=== PATIENT | female | born 1950 | race American Indian/Alaskan Native ===

== ENCOUNTER 2017-02-28 19:02 | Emergency (ER) | payer MEDICARE ==
[2017-02-28] MEDS ORDERED: NORCO 5/325 PO ONE (20:18)
--- NOTE | 2017-02-28 20:29 | Emergency Department Report ---
HPI - General Chief Complaint: Extremity Injury, Lower Time Seen by Provider: 02/28/17 20:11 - HPI HPI: Room 2 The patient is a 66-year-old female presenting with a chief complaint of left foot pain. The patient states 4 days ago she dropped a spoon on her left foot and since then it has been in pain. Patient describes the pain as throbbing in nature as well as feeling as though there are pins sticking. Patient gives her pain a score of 10/10. Patient denies laceration Location: Left foot Duration: 4 days Quality: [see above] Severity: 10/10 Modifying factors: Movement causes pain Context: [see above] Mode of transportation: [not driving] ED Past Medical Hx - Past Medical History Previous Medical History?: Yes Hx Hypertension: Yes Hx Heart Attack/AMI: Yes Hx Congestive Heart Failure: Yes Additional medical history: Pacemaker since 2009 - Surgical History Additional Surgical History: Pacemaker - Family History Family history: no significant - Social History Smoking Status: Current Some Day Smoker Substance Use Type: None - Medications Home Medications: Home Medications Medication Instructions Recorded Confirmed Last Taken Type Apixaban [Eliquis] 5 mg PO BID 02/28/17 02/28/17 Unknown History Aspirin [Aspirin BABY CHEW TAB] 81 mg PO QDAY 02/28/17 02/28/17 Unknown History Carvedilol [Coreg] 25 mg PO BID 02/28/17 02/28/17 Unknown History Furosemide [Lasix TAB] 40 mg PO BID 02/28/17 02/28/17 Unknown History Pravastatin (Nf) [Pravachol] 40 mg PO QHS 02/28/17 02/28/17 Unknown History ED Review of Systems ROS: Stated complaint: LEFT FOOT PAIN Other details as noted in HPI Comment: All other systems reviewed and negative Constitutional: denies: chills, fever Eyes: denies: eye pain, eye discharge, vision change ENT: denies: ear pain, throat pain Respiratory: denies: cough, shortness of breath, wheezing Cardiovascular: denies: chest pain, palpitations Endocrine: no symptoms reported Gastrointestinal: denies: abdominal pain, nausea, diarrhea Genitourinary: denies: urgency, dysuria, discharge Musculoskeletal: myalgia Skin: change in color Neurological: denies: headache, weakness, paresthesias Psychiatric: denies: anxiety, depression Hematological/Lymphatic: denies: easy bleeding, easy bruising Physical Exam - Physical Exam Vital Signs: Vital Signs 02/28/17 19:33 Temperature 97.9 F Pulse Rate 42 L Respiratory 20 Rate Blood Pressure 139/119 O2 Sat by Pulse 97 Oximetry Physical Exam: GENERAL: The patient is well-developed well-nourished female lying on stretcher not appearing to be in acute distress. [] HEENT: Normocephalic. Atraumatic. NECK: Trachea midline CHEST/LUNGS: There is no respiratory distress noted. HEART/CARDIOVASCULAR: Normal capillary refill soles of the left SKIN: There is warmth and rubor overlying the dorsum of the right foot. No definite areas of fluctuance appreciated. No evidence of previous lacerations or broken skin NEURO: The patient is awake, alert, and oriented. The patient is cooperative. The patient has normal speech MUSCULOSKELETAL: There is tenderness to palpation and swelling overlying the dorsum the left foot ED Course Vital Signs 02/28/17 19:33 Temperature 97.9 F Pulse Rate 42 L Respiratory 20 Rate Blood Pressure 139/119 O2 Sat by Pulse 97 Oximetry ED Medical Decision Making - Radiology Data Radiology results: image reviewed (left foot x-ray) interpreted by me: Left foot x-ray-no acute fracture, no foreign body - Differential Diagnosis foot fracture, foot cellulitis Critical care attestation.: If time is entered above; I have spent that time in minutes in the direct care of this critically ill patient, excluding procedure time. ED Disposition Clinical Impression: Contusion of left foot, Cellulitis of left foot Disposition: DC-01 TO HOME OR SELFCARE Is pt being admited?: No Does the pt Need Aspirin: No Condition: Stable Instructions: Cellulitis (ED) Additional Instructions: Return to the emergency department immediately should you develop worsening symptoms, fever, inability to tolerate food or liquid or any other concerns. Prescriptions: HYDROcodone/APAP 5-325 [[place] 5/325] 1 - 2 each PO Q6HR PRN #14 tablet PRN Reason: Pain Ibuprofen [Motrin 800 MG tab] 800 mg PO Q8HR PRN #20 tablet PRN Reason: Pain Sulfamethoxazole/Trimethoprim [Bactrim DS TAB] 1 each PO BID #20 tablet Referrals: PRIMARY CARE, [Primary Care Provider] - 3-5 Days Time of Disposition: 21:07
--- NOTE | 2017-02-28 20:46 | XRay Report ---
FINAL REPORT PROCEDURE: XR FOOT 3+V LT TECHNIQUE: Left foot, three views HISTORY: Left foot pain COMPARISON: No prior studies are available for comparison. FINDINGS: No acute fracture or dislocation is seen. No focal osseous lesion is seen. No cortical erosions are seen. IMPRESSION: No acute abnormality is identified
[2017-02-28 21:42] VITALS: BP 99/63
== END 2017-02-28 21:50 | disposition home or self-care (01) ==
LOC: ED 19:02
DX: S90.32XA Contusion of left foot, initial encounter (principal); W20.8XXA Other cause of strike by thrown, projected or falling object, initial encounter; Y93.9 Activity, unspecified; Y92.9 Unspecified place or not applicable; Y99.9 Unspecified external cause status; I10 Essential (primary) hypertension; I50.9 Heart failure, unspecified; F17.200 Nicotine dependence, unspecified, uncomplicated
CPT/HCPCS: 93005; 93010

== ENCOUNTER 2021-02-14 12:46 | Inpatient (IN) | payer MEDICARE ==
[2021-02-17] MEDS ORDERED: oxyCODONE /ACETAMINOPHEN 5-325MG TAB PO PRN (11:23)
[2021-02-17] MEDS ORDERED: ONDANSETRON 4 MG/2 ML INJ IV PRN (11:23)
[2021-02-17] MEDS ORDERED: ACETAMINOPHEN 325 MG TAB PO PRN (11:23)
[2021-02-17] MEDS ORDERED: HYDROmorphone 1 MG/1 ML INJ IV PRN (11:23)
--- NOTE | 2021-02-20 07:44 | History and Physical Report ---
History of Present Illness Date of examination: 02/19/21 Date of admission: 02/19/21 18:36 Chief complaint: Right hip fracture History of present illness: 70-year-old female unknown to me was admitted as a direct admit for right hip fracture. Patient apparently had a fall on February 06 and sustained a hip fracture. Patient was apparently seen in the emergency room and sent home and brought in as a direct admit today for possible ORIF. Patient has a history of hypertension and CHF. Patient has pain about 6-8 on a scale of 1-10 on the right hip. No shortness of breath no fever no chills. Past History Past Medical History: heart failure, hypertension Past Surgical History: No surgical history Social history: lives with family, full code Family history: hypertension Medications and Allergies Allergies Allergy/AdvReac Type Severity Reaction Status Date / Time clarithromycin [From Biaxin] Allergy Rash Verified 02/11/21 15:28 lisinopril Allergy Rash Verified 02/11/21 15:28 Penicillins Allergy Rash Verified 02/11/21 15:28 Home Medications Medication Instructions Recorded Confirmed Last Taken Type Aspirin [Aspirin BABY CHEW TAB] 81 mg PO QDAY 02/28/17 02/11/21 Unknown History Furosemide [Lasix TAB] 40 mg PO PRN PRN 02/28/17 02/11/21 Unknown History carvediloL [Coreg] 25 mg PO DAILY 02/28/17 02/11/21 Unknown History Amiodarone [Cordarone 200 MG TAB] 200 mg PO DAILY 02/11/21 02/11/21 Unknown History calcitrioL [Rocaltrol] 0.25 mcg PO DAILY 02/11/21 02/11/21 Unknown History hydrALAZINE [Apresoline TAB] 10 mg PO TID 02/11/21 02/11/21 Unknown History Active Meds: Active Medications Acetaminophen (Acetaminophen 325 Mg Tab) 650 mg PO Q4H PRN PRN Reason: Pain MILD(1-3)/Fever >100.5/RAMESH Hydromorphone HCl (Hydromorphone 1 Mg/1 Ml Inj) 0.5 mg IV Q3H PRN PRN Reason: Pain , Severe (7-10) Ondansetron HCl (Ondansetron 4 Mg/2 Ml Inj) 4 mg IV Q8H PRN PRN Reason: Nausea And Vomiting Oxycodone/Acetaminophen (Oxycodone /Acetaminophen 5-325mg Tab) 1 tab PO Q6H PRN PRN Reason: Pain, Moderate (4-6) Last Admin: 02/19/21 22:17 Dose: 1 tab Documented by: Sodium Chloride (Sodium Chloride 0.9% 10 Ml Flush Syringe) 10 ml IV BID DAVID Last Admin: 02/19/21 22:23 Dose: 10 ml Documented by: Sodium Chloride (Sodium Chloride 0.9% 10 Ml Flush Syringe) 10 ml IV PRN PRN PRN Reason: LINE FLUSH Review of Systems All systems: negative Musculoskeletal: fractures (Right rib fracture), other (Decreased range of motion of the right hip) Exam - Constitutional Vitals: Temp Pulse Resp BP Pulse Ox 97.5 F L 70 16 134/70 95 02/20/21 04:42 02/20/21 04:42 02/20/21 04:42 02/20/21 04:42 02/20/21 04:42 General appearance: Present: mild distress, well-nourished - EENT Eyes: Present: PERRL ENT: hearing intact, clear oral mucosa - Neck Neck: Present: supple, normal ROM - Respiratory Respiratory effort: normal Respiratory: bilateral: CTA - Cardiovascular Heart rate: 78 Rhythm: regular Heart Sounds: Present: S1 & S2. Absent: rub, click - Extremities Extremities: pulses symmetrical, No edema, abnormal (Decreased range of motion in the right hip) Extremity abnormal: deformity (Abduction and internal rotation of the right lower extremity), other Peripheral Pulses: within normal limits - Abdominal General gastrointestinal: Present: soft, non-tender, non-distended, normal bowel sounds Female genitourinary: Present: normal - Rectal Rectal Exam: deferred - Integumentary Integumentary: Present: clear, warm, dry - Musculoskeletal Musculoskeletal: gait normal, strength equal bilaterally - Psychiatric Psychiatric: appropriate mood/affect, intact judgment & insight - Neurologic Neurologic: CNII-XII intact, moves all extremities - Allied Health Allied health notes reviewed: nursing, case management Results Gonsalves/IV: Voiding Method Toilet Assessment and Plan Advance Directives: Yes (Full code) VTE prophylaxis?: Chemical Plan of care discussed with patient/family: Yes - Patient Problems (1) Closed right hip fracture Current Visit: Yes Status: Acute Qualifiers: Encounter type: initial encounter Qualified Code(s): S72.001A - Fracture of unspecified part of neck of right femur, initial encounter for closed fracture Plan to address problem: Possible surgery by orthopedics (2) Hypertension Current Visit: Yes Status: Chronic Qualifiers: Hypertension type: primary hypertension Qualified Code(s): I10 - Essential (primary) hypertension Plan to address problem: Continue antihypertensives (3) CHF (congestive heart failure) Current Visit: Yes Status: Chronic Qualifiers: Heart failure type: combined systolic and diastolic Plan to address problem: Continue Lasix (4) DVT prophylaxis Current Visit: Yes Status: Acute Plan to address problem: On SCDs and GI prophylaxis Heparin to be started after surgery
[2021-02-20] MEDS: CALCITRIOL 0.25 MCG CAP PO SCH (09:04)
[2021-02-20] MEDS: AMIODARONE 200 MG TAB PO SCH (09:05)
[2021-02-20] MEDS: hydrALAZINE 10 MG TAB PO SCH ×2 (09:05→14:14)
[2021-02-20] MEDS: POTASSIUM CHLORIDE ER 20 MEQ TAB PO SCH (09:06)
[2021-02-20] MEDS: FUROSEMIDE 40 MG TAB PO SCH (09:06)
[2021-02-20 09:22] LABS: Basophils # (Auto) 0.1 K/mm3 (0.0-0.1); Basophils % (Auto) 1.5 % (0.0-1.8); Eosinophils # (Auto) 0.3 K/mm3 (0.0-0.4); Eosinophils % (Auto) 3.8 % (0.0-4.3); Hematocrit 36.9 % (30.3-42.9); Hemoglobin 12.8 gm/dl (10.1-14.3); Lymphocytes # (Auto) 1.5 K/mm3 (1.2-5.4); Lymphocytes % (Auto) 18.9 % (13.4-35.0); Mean Corpuscular HGB Conc 35 % (30-34); Mean Corpuscular Volume 94 fl (79-97); Monocytes # (Auto) 0.5 K/mm3 (0.0-0.8); Monocytes % (Auto) 6.3 % (0.0-7.3); Platelet Count 279 K/mm3 (140-440); Red Blood Count 3.93 M/mm3 (3.65-5.03); Red Cell Distribution Width 14.1 % (13.2-15.2)
[2021-02-20 09:23] LABS: Calcium 10.3 mg/dL (8.4-10.2)
--- NOTE | 2021-02-20 09:33 | Consultation ---
History of Present Illness Consult date: 02/20/21 Requesting physician: SHANNON SALAS Consult reason: pre op evaluation History of present illness: Pt is a 70-year-old AA female with a hx of chronic HFrEF, NICMP s/p BiV ICD (Roel Sci), severe MR, COPD, prior tobacco abuse, and HTN, who presented as a direct admit for eval of L tib-fib fx and in consideration for possible orthopedic surgical intervention. Cardiology has been consulted to provide pre-op risk str atification. Pt is followed by Dr. Hooks with [facility] in [place], [place]. She has been seen at the [facility] as well (last visit 2018). Pt is compliant with her home regimen and is well-compensated from a HF perspective. Pt states "I can walk anywhere I want. I travel and walk through the airport without any problems." She denies chest pain, palpitations, SOB, edema, or any additional cardiac complaints. She reports her most recent ICD check was August 2020, which revealed normal device function at that time. Echo 09/2017 - EF 20%, akinetic basal/mid inferior and inferolateral delgado, grade II diastolic dysfxn, RV systolic fxn mild-mod reduced, LA severely dilated, RA mildly dilated, severe MR, mild TR, mildly elevated RVSP. Past History Past Medical History: COPD, heart failure, hypertension Past Surgical History: denies: valve replacement, CABG, PTCA Social history: lives with family, smoking (former), full code. denies: alcohol abuse Family history: hypertension Medications and Allergies Allergies Allergy/AdvReac Type Severity Reaction Status Date / Time clarithromycin [From Biaxin] Allergy Rash Verified 02/11/21 15:28 lisinopril Allergy Rash Verified 02/11/21 15:28 Penicillins Allergy Rash Verified 02/11/21 15:28 Home Medications Medication Instructions Recorded Confirmed Last Taken Type Aspirin [Aspirin BABY CHEW TAB] 81 mg PO QDAY 02/28/17 02/11/21 Unknown History Furosemide [Lasix TAB] 40 mg PO PRN PRN 02/28/17 02/11/21 Unknown History carvediloL [Coreg] 25 mg PO DAILY 02/28/17 02/11/21 Unknown History Amiodarone [Cordarone 200 MG TAB] 200 mg PO DAILY 02/11/21 02/11/21 Unknown History calcitrioL [Rocaltrol] 0.25 mcg PO DAILY 02/11/21 02/11/21 Unknown History hydrALAZINE [Apresoline TAB] 10 mg PO TID 02/11/21 02/11/21 Unknown History Active Meds: Active Medications Acetaminophen (Acetaminophen 325 Mg Tab) 650 mg PO Q4H PRN PRN Reason: Pain MILD(1-3)/Fever >100.5/RAMESH Amiodarone HCl (Amiodarone 200 Mg Tab) 200 mg PO DAILY [facility] Last Admin: 02/20/21 09:05 Dose: 200 mg Documented by: Calcitriol (Calcitriol 0.25 Mcg Cap) 0.25 mcg PO DAILY [facility] Last Admin: 02/20/21 09:04 Dose: 0.25 mcg Documented by: Carvedilol (Carvedilol 25 Mg Tab) 25 mg PO DAILY [facility] Last Admin: 02/20/21 09:05 Dose: 12.5 mg Documented by: Furosemide (Furosemide 40 Mg Tab) 40 mg PO QDAY [facility] Last Admin: 02/20/21 09:06 Dose: Not Given Documented by: Hydralazine HCl (Hydralazine 10 Mg Tab) 10 mg PO TID [facility] Last Admin: 02/20/21 09:05 Dose: 10 mg Documented by: Hydromorphone HCl (Hydromorphone 1 Mg/1 Ml Inj) 0.5 mg IV Q3H PRN PRN Reason: Pain , Severe (7-10) Ondansetron HCl (Ondansetron 4 Mg/2 Ml Inj) 4 mg IV Q8H PRN PRN Reason: Nausea And Vomiting Oxycodone/Acetaminophen (Oxycodone /Acetaminophen 5-325mg Tab) 1 tab PO Q6H PRN PRN Reason: Pain, Moderate (4-6) Last Admin: 02/19/21 22:17 Dose: 1 tab Documented by: Potassium Chloride (Potassium Chloride Er 20 Meq Tab) 20 meq PO QDAY [facility] Last Admin: 02/20/21 09:06 Dose: Not Given Documented by: Sodium Chloride (Sodium Chloride 0.9% 10 Ml Flush Syringe) 10 ml IV BID [facility] Last Admin: 02/20/21 09:06 Dose: 10 ml Documented by: Sodium Chloride (Sodium Chloride 0.9% 10 Ml Flush Syringe) 10 ml IV PRN PRN PRN Reason: LINE FLUSH Review of Systems Constitutional: no fever, no chills Ears, nose, mouth and throat: no nasal congestion, no sore throat Cardiovascular: no chest pain, no orthopnea, no palpitations, no edema, no syncope, no lightheadedness, no shortness of breath, no dyspnea on exertion, no paroxysmal nocturnal dyspnea, no claudication Respiratory: no cough, no shortness of breath, no dyspnea on exertion Gastrointestinal: no abdominal pain, no nausea, no vomiting Genitourinary Female: no pelvic pain, no flank pain, no dysuria Musculoskeletal: no neck stiffness, no neck pain Integumentary: no rash, no wounds Neurological: no head injury, no paralysis, no weakness, no numbness, no tingling, no seizures, no syncope, no vertigo, no headaches Endocrine: no cold intolerance, no heat intolerance Hematologic/Lymphatic: no easy bruising, no easy bleeding Allergic/Immunologic: no anaphylaxis Physical Examination Last Vital Signs Temp 97.9 F 02/20/21 07:28 Pulse 71 02/20/21 07:28 Resp 16 02/20/21 07:28 BP 143/84 02/20/21 07:28 Pulse Ox 95 02/20/21 07:28 General appearance: no acute distress HEENT: Positive: EOMI, Normocephaly, Mucus Membranes Moist Neck: Positive: neck supple, trachea midline. Negative: JVD/HJR Cardiac: Positive: Reg Rate and Rhythm, S1/S2 Lungs: Positive: clear to auscultation Neuro: Positive: Grossly Intact Abdomen: Positive: Soft. Negative: Tender Skin: Negative: Rash Musculoskeletal: No Fluid Collection Extremities: Present: upper extr. pulses, lower extr. pulses. Absent: edema Results 02/20/21 Unknown 02/20/21 Unknown CBC 02/20/21 Range/Units Unknown WBC 7.8 (4.5-11.0) K/mm3 RBC 3.93 (3.65-5.03) M/mm3 Hgb 12.8 (10.1-14.3) gm/dl Hct 36.9 (30.3-42.9) % Plt Count 279 (140-440) K/mm3 Lymph # (Auto) 1.5 (1.2-5.4) K/mm3 [place] # (Auto) 0.5 (0.0-0.8) K/mm3 Eos # (Auto) 0.3 (0.0-0.4) K/mm3 Baso # (Auto) 0.1 (0.0-0.1) K/mm3 Comprehensive Metabolic Panel 02/20/21 Range/Units Unknown Sodium 136 L (137-145) mmol/L Potassium 4.6 (3.6-5.0) mmol/L Chloride 98.8 (98-107) mmol/L Carbon Dioxide 27 (22-30) mmol/L BUN 20 H (7-17) mg/dL Creatinine 1.4 H (0.6-1.2) mg/dL Glucose 94 (65-100) mg/dL Calcium 10.3 H (8.4-10.2) mg/dL - Imaging and Cardiology Echo: pending, report reviewed (09/2017 - EF 20%, akinetic basal/mid inferior and inferolateral delgado, grade II diastolic dysfxn, RV systolic fxn mild-mod reduced, LA severely dilated, RA mildly dilated, severe MR, mild TR, mildly elevated RVSP) EKG interpretations - Telemetry EKG Rhythm: Paced Pacemaker: normal AV synchronous pac Assessment and Plan Pt is moderate-high risk from a cardiovascular standpoint to proceed with orthopedic surgical intervention for L tib-fib fx. RCRI Class II, 1 point (assuming Cr not > 2.0mg/dL), 6.0% risk of MACE within 30 days. Her risk factors are non-modifiable. In the absence of ischemic sx or acutely decompensated HF, there are no cardiac contraindications to intervention at this time. Will follow with you. Otherwise stable cardiac status. Resume home cardiac regimen. Will change Coreg to 12.5mg BID. Pt does not appear to be on an ACEI or ARB as an outpatient. Awaiting labs for eval of renal fxn. Pt seen in conjunction with Dr. Malik, who agrees with the assessment and plan of care. - Patient Problems (1) Right femoral fracture Current Visit: Yes Status: Acute (2) Chronic HFrEF (heart failure with reduced ejection fraction) Current Visit: Yes Status: Chronic (3) Non-ischemic cardiomyopathy Current Visit: Yes Status: Chronic (4) Biventricular implantable cardioverter-defibrillator (ICD) in situ Current Visit: Yes Status: Chronic (5) Severe mitral regurgitation Current Visit: Yes Status: Chronic (6) Hypertension Current Visit: Yes Status: Chronic Qualifiers: Hypertension type: primary hypertension Qualified Code(s): I10 - Essential (primary) hypertension (7) H/O ventricular fibrillation Current Visit: Yes Status: Chronic (8) COPD (chronic obstructive pulmonary disease) Current Visit: Yes Status: Chronic (9) Tobacco abuse, in remission Current Visit: Yes Status: Chronic
[2021-02-20 09:46] LABS: INR 1.03 (0.87-1.13)
[2021-02-20 09:47] LABS: Partial Thromboplastin Time 27.3 Sec. (24.2-36.6)
[2021-02-20] MEDS ORDERED: carvediloL 25 MG TAB PO SCH ×2 (10:00→22:00)
[2021-02-20] MEDS ORDERED: MAGNESIUM OXIDE 400 MG TAB PO ONE (10:02)
[2021-02-20] MEDS ORDERED: ACETAMINOPHEN 325 MG TAB PO ONE (10:02)
[2021-02-20] MEDS ORDERED: fentaNYL 100 MCG/2 ML INJ IV ONE (10:02)
[2021-02-20] MEDS ORDERED: ONDANSETRON 4 MG/2 ML INJ IV PRN (10:02)
[2021-02-20] MEDS ORDERED: HYDROmorphone 1 MG/1 ML INJ IV PRN ×2 (10:02)
[2021-02-20] MEDS ORDERED: BUPIVACAINE/PF (0.25%) 2.5 MG/ML 30 ML VIAL INFILTRATI ONE (10:07)
--- NOTE | 2021-02-20 10:07 | Anesthesia Day of Surgery ---
Anesthesia Day of Surgery - Day of Surgery Patient Examined: Yes Patient H&P Reviewed: Yes Patient is NPO: Yes Beta Blockers: Yes Cardiac Clearance: Yes Mike's Test: N/A
[2021-02-20] MEDS ORDERED: dexAMETHasone 4 MG/ML VIAL ONE (10:08)
[2021-02-20] MEDS ORDERED: BUPIVACAINE/PF (0.5%) 5 MG/1 ML 30 ML VIAL INFILTRATI ONE (10:08)
--- NOTE | 2021-02-20 10:13 | Anesthesia Consultation ---
Anesthesia Consult and Med Hx Date of service: 02/20/21 - Airway Anesthetic Teeth Evaluation: Poor ROM Head & Neck: Adequate Mental/Hyoid Distance: Adequate Mallampati Class: Class I Intubation Access Assessment: Probably Good - Cardiac Exam Anesthetic Concerns: AICD- av paced. echo 2018 showed 20% EF, severe MR, mild TR - Pre-Operative Health Status ASA Pre-Surgery Classification: ASA2 Proposed Anesthetic Plan: General, Spinal Nerve Block: Pop - Pulmonary Hx Smoking: No (FORMER) Hx Sleep Apnea: No - Cardiovascular System Hx Hypertension: Yes Hx Heart Attack/AMI: Yes Hx Pacemaker: Yes (av paced, replaced aug 2019) Hx Internal Defibrillator: Yes - Central Nervous System Hx Neuromuscular Disorder: No Hx Psychiatric Problems: No - Endocrine Hx Renal Disease: Yes (CKD III) - Other Systems Hx Cancer: No
--- NOTE | 2021-02-20 10:14 | Progress Note ---
Assessment and Plan Assessment and plan: --Displaced left tibia and fibula fracture Current Visit: Yes Status: Acute Evaluated by orthopedic surgeon underwent s/p Closed reduction insertion of intramedullary nail left] tibia Postop care, pain medications, physical therapy and supportive care --Hypertension Current Visit: Yes Status: Chronic Continue antihypertensives --CHF (congestive heart failure) Current Visit: Yes Status: Chronic Continue current antifailure medications --Acute kidney injury; Current Visit: Yes Status: Acute vasomotor nephropathy Gentle hydration, monitor renal function, avoid nephrotoxin --DVT prophylaxis Current Visit: Yes Status: Acute DVT prophylaxis per orthopedic We will closely monitor the patient and adjust the management as needed Plan of care reviewed with the patient and her nurse Manager Of [employer] recommendations noted and appreciated History Interval history: I seen and examined the patient at the bedside this afternoon Patient's chart medications tests and reports reviewed Patient underwent Ortho surgical procedure today Sedated and sleeping, easily awakens Complains of some pain at the surgical site Vital signs noted Hospitalist Physical - Constitutional Vitals: Temp Pulse Resp BP Pulse Ox 97.9 F 71 16 143/84 95 02/20/21 07:28 02/20/21 07:28 02/20/21 07:28 02/20/21 07:28 02/20/21 07:28 General appearance: Present: mild distress, well-nourished, other (Sleeping easily awakens) - EENT Eyes: Present: PERRL, EOM intact - Neck Neck: Present: supple, normal ROM - Respiratory Respiratory effort: normal Respiratory: bilateral: diminished, negative: rales, rhonchi, wheezing - Cardiovascular Rhythm: regular Heart Sounds: Present: S1 & S2 - Extremities Extremities: no ischemia, No edema - Abdominal General gastrointestinal: soft, non-tender, non-distended, normal bowel sounds - Integumentary Integumentary: Present: clear, warm - Psychiatric Psychiatric: appropriate mood/affect, cooperative - Neurologic Neurologic: moves all extremities Results - Labs CBC & Chem 7: 02/20/21 Unknown 02/20/21 Unknown Labs: Laboratory Last Values WBC 7.8 K/mm3 (4.5-11.0) 02/20/21 Unknown RBC 3.93 M/mm3 (3.65-5.03) 02/20/21 Unknown Hgb 12.8 gm/dl (10.1-14.3) 02/20/21 Unknown Hct 36.9 % (30.3-42.9) 02/20/21 Unknown MCV 94 fl (79-97) 02/20/21 Unknown MCH 33 pg (28-32) H 02/20/21 Unknown MCHC 35 % (30-34) H 02/20/21 Unknown RDW 14.1 % (13.2-15.2) 02/20/21 Unknown Plt Count 279 K/mm3 (140-440) 02/20/21 Unknown Lymph % (Auto) 18.9 % (13.4-35.0) 02/20/21 Unknown Labette % (Auto) 6.3 % (0.0-7.3) 02/20/21 Unknown Eos % (Auto) 3.8 % (0.0-4.3) 02/20/21 Unknown Baso % (Auto) 1.5 % (0.0-1.8) 02/20/21 Unknown Lymph # (Auto) 1.5 K/mm3 (1.2-5.4) 02/20/21 Unknown Labette # (Auto) 0.5 K/mm3 (0.0-0.8) 02/20/21 Unknown Eos # (Auto) 0.3 K/mm3 (0.0-0.4) 02/20/21 Unknown Baso # (Auto) 0.1 K/mm3 (0.0-0.1) 02/20/21 Unknown Seg Neutrophils % 69.5 % (40.0-70.0) 02/20/21 Unknown Seg Neutrophils # 5.4 K/mm3 (1.8-7.7) 02/20/21 Unknown PT 14.1 Sec. (12.2-14.9) 02/20/21 Unknown INR 1.03 (0.87-1.13) 02/20/21 Unknown APTT 27.3 Sec. (24.2-36.6) 02/20/21 Unknown Sodium 136 mmol/L (137-145) L 02/20/21 Unknown Potassium 4.6 mmol/L (3.6-5.0) 02/20/21 Unknown Chloride 98.8 mmol/L (98-107) 02/20/21 Unknown Carbon Dioxide 27 mmol/L (22-30) 02/20/21 Unknown Anion Gap 15 mmol/L 02/20/21 Unknown BUN 20 mg/dL (7-17) H 02/20/21 Unknown Creatinine 1.4 mg/dL (0.6-1.2) H 02/20/21 Unknown Estimated GFR 45 ml/min 02/20/21 Unknown BUN/Creatinine Ratio 14 % 02/20/21 Unknown Glucose 94 mg/dL (65-100) 02/20/21 Unknown Calcium 10.3 mg/dL (8.4-10.2) H 02/20/21 Unknown Gonsalves/IV: Voiding Method Toilet Active Medications - Current Medications Current Medications: Generic Name Dose Route Start Last Admin Trade Name Freq PRN Reason Stop Dose Admin Acetaminophen 650 mg 02/17/21 11:23 Acetaminophen 325 Mg Tab PO Q4H PRN Pain MILD(1-3)/Fever >100.5/RAMESH Amiodarone HCl 200 mg 02/20/21 10:00 02/20/21 09:05 Amiodarone 200 Mg Tab PO 200 mg DAILY DAVID Administration Calcitriol 0.25 mcg 02/20/21 10:00 02/20/21 09:04 Calcitriol 0.25 Mcg Cap PO 0.25 mcg DAILY DAVID Administration Carvedilol 12.5 mg 02/20/21 22:00 Carvedilol 12.5 Mg Tab PO BID DAVID Furosemide 40 mg 02/20/21 10:00 02/20/21 09:06 Furosemide 40 Mg Tab PO Not Given QDAY DAVID Hydralazine HCl 10 mg 02/20/21 09:00 02/20/21 09:05 Hydralazine 10 Mg Tab PO 10 mg TID DAVID Administration Hydromorphone HCl 0.5 mg 02/17/21 11:23 Hydromorphone 1 Mg/1 Ml Inj IV Q3H PRN Pain , Severe (7-10) Hydromorphone HCl 0.25 mg 02/20/21 10:02 Hydromorphone 1 Mg/1 Ml Inj IV 02/20/21 23:59 Q10MIN PRN Pain, Moderate (4-6) Hydromorphone HCl 0.5 mg 02/20/21 10:02 Hydromorphone 1 Mg/1 Ml Inj IV 02/20/21 23:59 Q10MIN PRN Pain , Severe (7-10) Lactated Ringer's 1,000 mls @ 100 mls/hr 02/20/21 10:15 Lactated Ringers IV DIRECT DAVID Midazolam HCl 2 mg 02/20/21 11:00 Midazolam 2 Mg/2 Ml Inj IV 02/20/21 23:59 PREOP NR Ondansetron HCl 4 mg 02/17/21 11:23 Ondansetron 4 Mg/2 Ml Inj IV Q8H PRN Nausea And Vomiting Ondansetron HCl 4 mg 02/20/21 10:02 Ondansetron 4 Mg/2 Ml Inj IV 02/20/21 23:59 ONCE PRN Nausea And Vomiting Oxycodone/Acetaminophen 1 tab 02/17/21 11:23 02/19/21 22:17 Oxycodone /Acetaminophen 5-325mg Tab PO 1 tab Q6H PRN Administration Pain, Moderate (4-6) Potassium Chloride 20 meq 02/20/21 10:00 02/20/21 09:06 Potassium Chloride Er 20 Meq Tab PO Not Given QDAY DAVID Sodium Chloride 10 ml 02/17/21 22:00 02/20/21 09:06 Sodium Chloride 0.9% 10 Ml Flush Syringe IV 10 ml BID DAVID Administration Sodium Chloride 10 ml 02/17/21 11:23 Sodium Chloride 0.9% 10 Ml Flush Syringe IV PRN PRN LINE FLUSH
[2021-02-20] MEDS ORDERED: LACTATED RINGERS 1,000 ML IV SCH (10:15)
[2021-02-20] MEDS ORDERED: ceFAZolin/STERILE WATER 2 GM/20 ML SYRINGE IV NR (11:00)
[2021-02-20] MEDS ORDERED: MIDAZOLAM 2 MG/2 ML INJ IV NR (11:00)
[2021-02-20] MEDS ORDERED: VANCOMYCIN/NS 1 GM/250 ML 1 GM/250 ML BAG IV NR (11:00)
[2021-02-20] MEDS ORDERED: ePHEDrine SULFATE 50 MG/1 ML INJ ONE (11:25)
[2021-02-20] MEDS ORDERED: ONDANSETRON 4 MG/2 ML INJ ONE (11:35)
[2021-02-20] MEDS ORDERED: PHENYLEPHRINE/NS 1,000 MCG/10 ML SYRINGE (OR USE) IV ONE ×2 (11:55)
[2021-02-20] MEDS ORDERED: SODIUM CHLORIDE 0.9% IRR 1,500 ML BOTTLE IR ONE ×2 (13:38)
--- NOTE | 2021-02-20 14:00 | Procedure Note ---
Date of procedure: 02/20/21 Pre-op diagnosis: Displaced left tib-fib fracture Post-op diagnosis: same Procedure: Closed reduction insertion of intramedullary nail left] tibia Procedure The patient was brought to the OR placed in the OR table in supine position following induction of spinal anesthesia patient for left lower extremity was prepped and draped in the usual sterile manner a timeout procedure was done to identify the patient and the correct operative site. A midline incision was made over the patellar tendon was taken down sharply through skin and subcutaneous deep tendon was incised longitudinally withdraws down to the proximal tibial articular surface.Large awl was used to enter the medullary can followed by insertion of a bolster a guidewire under C-arm visualization the fracture site was identified and using gentle manipulation the guidewire was placed into the distal tibia following this the size measurements were taken on 11 x 375 mm shannon was chosen. The medullary canal was then reamed up to a 12.5 mm diameter followed by insertion of the intramedullary shannon using the antegrade technique the guidewire was removed followed by placement of 2 proximal locking screws again under C-arm direction this was then followed by placement of two distal locking screws going from medial to lateral following this the wounds were copiously irrigated and the patellar tendon was repaired this was followed by closure of the skin and subcutaneous to postoperative dressing were applied the patient tolerated the procedure minimal complications she was taken to postanesthesia recovery in stable condition Anesthesia: MAC, spinal Surgeon: SHANNON SALAS (Edson Hidalgo, 1st assist) Estimated blood loss: minimal Pathology: none Condition: stable Disposition: PACU
[2021-02-20] MEDS ORDERED: MORPHINE 4 MG/1 ML INJ IV PRN (14:30)
[2021-02-20] MEDS ORDERED: KETOROLAC 30 MG/1 ML INJ IV PRN (14:30)
--- NOTE | 2021-02-20 15:52 | Post Anesthesia Evaluation ---
- Post Anesthesia Evaluation Patient Participated: Yes Airway Patent: Yes Stable Respiratory Function: Yes Nausea/Vomiting: No Temp > 96.8F: Yes Pain Manageable: Yes Adequeate Hydration: Yes Anesthesia Complications: No Block Receding Appropriately: Yes Patient on Ventilator: No
--- NOTE | 2021-02-20 15:55 | XRay Report ---
LEFT TIBIA AND FIBULA 2 VIEWS INDICATION: ORIF LT TIBIA. COMPARISON: None. IMPRESSION: 1 minute and 36 seconds of fluoroscopy time was provided by radiology during open reduct ion and internal fixation of a distal tibial fracture. Alignment is anatomic. Mildly displaced distal fibular fracture is also noted. 4 fluoroscopic images are presented. Please correlate with the proc edural report as needed. Signer Name: Tye Enciso Jr, MD Signed: 02/20/2021 3:51 PM Workstation Name: [id number]
--- NOTE | 2021-02-21 08:00 | Progress Note ---
Assessment and Plan Assessment and plan: --Displaced left tibia and fibula fracture Current Visit: Yes Status: Acute Evaluated by orthopedic surgeon underwent s/p Closed reduction insertion of intramedullary nail left] tibia Postop care, pain medications, physical therapy and supportive care --Hypertension Current Visit: Yes Status: Chronic Continue antihypertensives --CHF (congestive heart failure) Current Visit: Yes Status: Chronic Continue current antifailure medications --Acute kidney injury; Current Visit: Yes Status: Acute vasomotor nephropathy Gentle hydration, monitor renal function, avoid nephrotoxin --DVT prophylaxis Current Visit: Yes Status: Acute DVT prophylaxis per orthopedic We will closely monitor the patient and adjust the management as needed Plan of care reviewed with the patient and her nurse Perforator Loader recommendations noted and appreciated Brief history: 70-year-old female patient with history of fall 2 weeks ago with displaced left tibia-fibula fracture was admitted directly,Evaluated by orthopedic surgeon Underwent closed reduction insertion of intramedullary nail left tibia. Receiving postop care, physical therapy, occupational therapy and supportive care. Has history of congestive heart failure on antifailure medications Disposition: Per orthopedic team Hospitalist Physical - Constitutional Vitals: Temp Pulse Resp BP Pulse Ox 98.0 F 72 16 138/81 97 02/21/21 03:46 02/21/21 03:46 02/21/21 03:46 02/21/21 03:46 02/21/21 03:46 General appearance: Present: mild distress, well-nourished, other (Sleeping easily awakens) Results - Labs CBC & Chem 7: 02/21/21 08:05 02/21/21 08:05 Labs: Laboratory Last Values WBC 7.8 K/mm3 (4.5-11.0) 02/20/21 Unknown RBC 3.93 M/mm3 (3.65-5.03) 02/20/21 Unknown Hgb 12.8 gm/dl (10.1-14.3) 02/20/21 Unknown Hct 36.9 % (30.3-42.9) 02/20/21 Unknown MCV 94 fl (79-97) 02/20/21 Unknown MCH 33 pg (28-32) H 02/20/21 Unknown MCHC 35 % (30-34) H 02/20/21 Unknown RDW 14.1 % (13.2-15.2) 02/20/21 Unknown Plt Count 279 K/mm3 (140-440) 02/20/21 Unknown Lymph % (Auto) 18.9 % (13.4-35.0) 02/20/21 Unknown Dukes % (Auto) 6.3 % (0.0-7.3) 02/20/21 Unknown Eos % (Auto) 3.8 % (0.0-4.3) 02/20/21 Unknown Baso % (Auto) 1.5 % (0.0-1.8) 02/20/21 Unknown Lymph # (Auto) 1.5 K/mm3 (1.2-5.4) 02/20/21 Unknown Dukes # (Auto) 0.5 K/mm3 (0.0-0.8) 02/20/21 Unknown Eos # (Auto) 0.3 K/mm3 (0.0-0.4) 02/20/21 Unknown Baso # (Auto) 0.1 K/mm3 (0.0-0.1) 02/20/21 Unknown Seg Neutrophils % 69.5 % (40.0-70.0) 02/20/21 Unknown Seg Neutrophils # 5.4 K/mm3 (1.8-7.7) 02/20/21 Unknown PT 14.1 Sec. (12.2-14.9) 02/20/21 Unknown INR 1.03 (0.87-1.13) 02/20/21 Unknown APTT 27.3 Sec. (24.2-36.6) 02/20/21 Unknown Sodium 136 mmol/L (137-145) L 02/20/21 Unknown Potassium 4.6 mmol/L (3.6-5.0) 02/20/21 Unknown Chloride 98.8 mmol/L (98-107) 02/20/21 Unknown Carbon Dioxide 27 mmol/L (22-30) 02/20/21 Unknown Anion Gap 15 mmol/L 02/20/21 Unknown BUN 20 mg/dL (7-17) H 02/20/21 Unknown Creatinine 1.4 mg/dL (0.6-1.2) H 02/20/21 Unknown Estimated GFR 45 ml/min 02/20/21 Unknown BUN/Creatinine Ratio 14 % 02/20/21 Unknown Glucose 94 mg/dL (65-100) 02/20/21 Unknown Calcium 10.3 mg/dL (8.4-10.2) H 02/20/21 Unknown Gonsalves/IV: Voiding Method Toilet Active Medications - Current Medications Current Medications: Generic Name Dose Route Start Last Admin Trade Name Freq PRN Reason Stop Dose Admin Acetaminophen 650 mg 02/17/21 11:23 Acetaminophen 325 Mg Tab PO Q4H PRN Pain MILD(1-3)/Fever >100.5/RAMESH Amiodarone HCl 200 mg 02/20/21 10:00 02/20/21 09:05 Amiodarone 200 Mg Tab PO 200 mg DAILY DAVID Administration Calcitriol 0.25 mcg 02/20/21 10:00 02/20/21 09:04 Calcitriol 0.25 Mcg Cap PO 0.25 mcg DAILY DAVID Administration Carvedilol 12.5 mg 02/20/21 22:00 Carvedilol 12.5 Mg Tab PO BID DAVID Furosemide 40 mg 02/20/21 10:00 02/20/21 09:06 Furosemide 40 Mg Tab PO Not Given QDAY DAVID Hydralazine HCl 10 mg 02/20/21 09:00 02/20/21 14:14 Hydralazine 10 Mg Tab PO Not Given TID DAVID Hydromorphone HCl 0.5 mg 02/17/21 11:23 Hydromorphone 1 Mg/1 Ml Inj IV Q3H PRN Pain , Severe (7-10) Lactated Ringer's 1,000 mls @ 100 mls/hr 02/20/21 10:15 02/20/21 10:00 Lactated Ringers IV 100 mls/hr DIRECT DAVID Administration Ketorolac Tromethamine 15 mg 02/20/21 14:30 Ketorolac 30 Mg/1 Ml Inj IV 02/25/21 14:29 Q6H PRN Pain, Moderate (4-6) Morphine Sulfate 4 mg 02/20/21 14:30 Morphine 4 Mg/1 Ml Inj IV Q4H PRN Pain , Severe (7-10) Ondansetron HCl 4 mg 02/17/21 11:23 02/20/21 10:51 Ondansetron 4 Mg/2 Ml Inj IV 4 mg Q8H PRN Administration Nausea And Vomiting Oxycodone/Acetaminophen 1 tab 02/20/21 14:30 Oxycodone /Acetaminophen 5-325mg Tab PO Q6H PRN Pain, Moderate (4-6) Potassium Chloride 20 meq 02/20/21 10:00 02/20/21 09:06 Potassium Chloride Er 20 Meq Tab PO Not Given QDAY DAVID Sodium Chloride 10 ml 02/17/21 22:00 02/20/21 09:06 Sodium Chloride 0.9% 10 Ml Flush Syringe IV 10 ml BID DAVID Administration Sodium Chloride 10 ml 02/17/21 11:23 Sodium Chloride 0.9% 10 Ml Flush Syringe IV PRN PRN LINE FLUSH Sodium Chloride 10 ml 02/20/21 14:30 Sodium Chloride 0.9% 10 Ml Flush Syringe IV 02/21/21 23:59 PRN NR
[2021-02-21 08:17] LABS: Hematocrit 37.9 % (30.3-42.9); Hemoglobin 12.7 gm/dl (10.1-14.3)
[2021-02-21] MEDS: carvediloL 12.5 MG TAB PO SCH ×3 (11:18→22:20)
[2021-02-21] MEDS: hydrALAZINE 10 MG TAB PO SCH ×4 (11:18→22:20)
[2021-02-21] MEDS: FUROSEMIDE 40 MG TAB PO SCH ×2 (11:19→11:21)
[2021-02-21] MEDS: AMIODARONE 200 MG TAB PO SCH (11:19)
[2021-02-21] MEDS: CALCITRIOL 0.25 MCG CAP PO SCH (11:20)
--- NOTE | 2021-02-21 11:58 | Progress Note ---
Assessment and Plan Continue present cardiac mgmt. Coreg changed from 25mg daily to 12.5mg BID. No ACEI or ARB due to renal fxn. Resume bASA when ok from an Ortho perspective. Otherwise stable cardiac status. Will see on an as-needed basis. Pt will follow-up with her Primary Gold Layer (Dr. Hooks in [place], [place]) upon discharge. Pt seen in conjunction with Dr. Mlaik, who agrees with the assessment and plan of care. - Patient Problems (1) Fracture of left tibia and fibula Current Visit: Yes Status: Acute (2) Chronic HFrEF (heart failure with reduced ejection fraction) Current Visit: Yes Status: Chronic (3) Non-ischemic cardiomyopathy Current Visit: Yes Status: Chronic (4) Biventricular implantable cardioverter-defibrillator (ICD) in situ Current Visit: Yes Status: Chronic (5) Severe mitral regurgitation Current Visit: Yes Status: Chronic (6) CKD (chronic kidney disease) Current Visit: Yes Status: Chronic (7) Hypertension Current Visit: Yes Status: Chronic Qualifiers: Hypertension type: primary hypertension Qualified Code(s): I10 - Essential (primary) hypertension (8) H/O ventricular fibrillation Current Visit: Yes Status: Chronic (9) COPD (chronic obstructive pulmonary disease) Current Visit: Yes Status: Chronic (10) Tobacco abuse, in remission Current Visit: Yes Status: Chronic Subjective Date of service: 02/21/21 Principal diagnosis: L Tib-Fib Fx Interval history: Resting comfortably in bed. No cardiac complaints. Post-op pain is well- controlled. Objective Last Vital Signs Temp 98.0 F 02/21/21 03:46 Pulse 72 02/21/21 11:18 Resp 16 02/21/21 03:46 BP 149/78 02/21/21 11:18 Pulse Ox 99 02/21/21 10:00 - Physical Examination General: No Apparent Distress HEENT: Positive: EOMI, Normocephaly, Mucus Membranes Moist Neck: Positive: neck supple, trachea midline. Negative: JVD/HJR Cardiac: Positive: Reg Rate and Rhythm, S1/S2 Lungs: Positive: clear to auscultation Neuro: Positive: Grossly Intact Abdomen: Positive: Soft. Negative: Tender Skin: Negative: Rash Musculoskeletal: No Fluid Collection Extremities: Present: lower extr. pulses. Absent: edema - Labs and Meds CBC 02/21/21 Range/Units 08:05 Hgb 12.7 (10.1-14.3) gm/dl Hct 37.9 (30.3-42.9) % Comprehensive Metabolic Panel 02/21/21 Range/Units 08:05 Sodium 135 L (137-145) mmol/L Potassium 4.9 (3.6-5.0) mmol/L Chloride 99.9 (98-107) mmol/L Carbon Dioxide 23 (22-30) mmol/L BUN 31 H (7-17) mg/dL Creatinine 1.7 H (0.6-1.2) mg/dL Glucose 142 H (65-100) mg/dL Calcium 10.0 (8.4-10.2) mg/dL - Imaging and Cardiology Echo: pending, report reviewed (09/2017 - EF 20%, akinetic basal/mid inferior and inferolateral delgado, grade II diastolic dysfxn, RV systolic fxn mild-mod reduced, LA severely dilated, RA mildly dilated, severe MR, mild TR, mildly elevated RVSP) - Telemetry EKG Rhythm: Paced Pacemaker: normal AV synchronous pac
[2021-02-21] MEDS: oxyCODONE /ACETAMINOPHEN 5-325MG TAB PO PRN (12:20)
--- NOTE | 2021-02-21 14:50 | Progress Note ---
Assessment and Plan Assessment and plan: --Displaced left tibia and fibula fracture Current Visit: Yes Status: Acute Evaluated by orthopedic surgeon underwent s/p Closed reduction insertion of intramedullary nail left] tibia Postop care, pain medications, physical therapy and supportive care --Hypertension Current Visit: Yes Status: Chronic Continue antihypertensives --CHF (congestive heart failure) Current Visit: Yes Status: Chronic Continue current antifailure medications --Acute kidney injury; Current Visit: Yes Status: Acute vasomotor nephropathy Gentle hydration, monitor renal function, avoid nephrotoxin --DVT prophylaxis Current Visit: Yes Status: Acute DVT prophylaxis per orthopedic We will closely monitor the patient and adjust the management as needed Plan of care reviewed with the patient and her nurse Project Admin recommendations noted and appreciated Brief history: 70-year-old female patient with history of fall 2 weeks ago with displaced left tibia-fibula fracture was admitted directly,Evaluated by orthopedic surgeon Underwent closed reduction insertion of intramedullary nail left tibia. Receiving postop care, physical therapy, occupational therapy and supportive care. Has history of congestive heart failure on antifailure medications Disposition: Per orthopedic team 02/21/2021; Patient is tolerating physical therapy, very minimal pain at the surgical site Possible discharge tomorrow if cleared by orthopedic and stable History Interval history: I have seen and examined the patient at the bedside Patient's chart and medications reviewed Patient with history of fall and fractured tibia-fibula Evaluated by orthopedic status post surgery Receiving hemodialysis No new complaints Vital signs stable Hospitalist Physical - Constitutional Vitals: Temp Pulse Resp BP Pulse Ox 98.0 F 72 16 149/78 99 02/21/21 03:46 02/21/21 11:18 02/21/21 03:46 02/21/21 11:18 02/21/21 10:00 General appearance: Present: no acute distress, well-nourished, other (Sleeping easily awakens) - EENT Eyes: Present: PERRL, EOM intact - Neck Neck: Present: supple, normal ROM - Respiratory Respiratory effort: normal Respiratory: bilateral: diminished, negative: rales, rhonchi, wheezing - Cardiovascular Rhythm: regular Heart Sounds: Present: S1 & S2 - Extremities Extremities: no ischemia, No edema - Abdominal General gastrointestinal: soft, non-tender, non-distended, normal bowel sounds - Integumentary Integumentary: Present: clear, warm - Psychiatric Psychiatric: appropriate mood/affect, cooperative - Neurologic Neurologic: CNII-XII intact, moves all extremities Results - Labs CBC & Chem 7: 02/21/21 08:05 02/21/21 08:05 Labs: Laboratory Last Values WBC 7.8 K/mm3 (4.5-11.0) 02/20/21 Unknown RBC 3.93 M/mm3 (3.65-5.03) 02/20/21 Unknown Hgb 12.7 gm/dl (10.1-14.3) 02/21/21 08:05 Hct 37.9 % (30.3-42.9) 02/21/21 08:05 MCV 94 fl (79-97) 02/20/21 Unknown MCH 33 pg (28-32) H 02/20/21 Unknown MCHC 35 % (30-34) H 02/20/21 Unknown RDW 14.1 % (13.2-15.2) 02/20/21 Unknown Plt Count 279 K/mm3 (140-440) 02/20/21 Unknown Lymph % (Auto) 18.9 % (13.4-35.0) 02/20/21 Unknown Guthrie % (Auto) 6.3 % (0.0-7.3) 02/20/21 Unknown Eos % (Auto) 3.8 % (0.0-4.3) 02/20/21 Unknown Baso % (Auto) 1.5 % (0.0-1.8) 02/20/21 Unknown Lymph # (Auto) 1.5 K/mm3 (1.2-5.4) 02/20/21 Unknown Guthrie # (Auto) 0.5 K/mm3 (0.0-0.8) 02/20/21 Unknown Eos # (Auto) 0.3 K/mm3 (0.0-0.4) 02/20/21 Unknown Baso # (Auto) 0.1 K/mm3 (0.0-0.1) 02/20/21 Unknown Seg Neutrophils % 69.5 % (40.0-70.0) 02/20/21 Unknown Seg Neutrophils # 5.4 K/mm3 (1.8-7.7) 02/20/21 Unknown PT 14.1 Sec. (12.2-14.9) 02/20/21 Unknown INR 1.03 (0.87-1.13) 02/20/21 Unknown APTT 27.3 Sec. (24.2-36.6) 02/20/21 Unknown Sodium 135 mmol/L (137-145) L 02/21/21 08:05 Potassium 4.9 mmol/L (3.6-5.0) 02/21/21 08:05 Chloride 99.9 mmol/L (98-107) 02/21/21 08:05 Carbon Dioxide 23 mmol/L (22-30) 02/21/21 08:05 Anion Gap 17 mmol/L 02/21/21 08:05 BUN 31 mg/dL (7-17) H 02/21/21 08:05 Creatinine 1.7 mg/dL (0.6-1.2) H 02/21/21 08:05 Estimated GFR 36 ml/min 02/21/21 08:05 BUN/Creatinine Ratio 18 % 02/21/21 08:05 Glucose 142 mg/dL (65-100) H 02/21/21 08:05 Calcium 10.0 mg/dL (8.4-10.2) 02/21/21 08:05 Gonsalves/IV: Voiding Method Bedside Commode Active Medications - Current Medications Current Medications: Generic Name Dose Route Start Last Admin Trade Name Freq PRN Reason Stop Dose Admin Acetaminophen 650 mg 02/17/21 11:23 Acetaminophen 325 Mg Tab PO Q4H PRN Pain MILD(1-3)/Fever >100.5/RAMESH Amiodarone HCl 200 mg 02/20/21 10:00 02/21/21 11:19 Amiodarone 200 Mg Tab PO 200 mg DAILY DAVID Administration Calcitriol 0.25 mcg 02/20/21 10:00 02/21/21 11:20 Calcitriol 0.25 Mcg Cap PO 0.25 mcg DAILY DAVID Administration Carvedilol 12.5 mg 02/20/21 22:00 02/21/21 11:18 Carvedilol 12.5 Mg Tab PO 12.5 mg BID DAVID Administration Furosemide 40 mg 02/20/21 10:00 02/21/21 11:21 Furosemide 40 Mg Tab PO Not Given QDAY DAVID Hydralazine HCl 10 mg 02/20/21 09:00 02/21/21 11:18 Hydralazine 10 Mg Tab PO 10 mg TID DAVID Administration Hydromorphone HCl 0.5 mg 02/17/21 11:23 Hydromorphone 1 Mg/1 Ml Inj IV Q3H PRN Pain , Severe (7-10) Lactated Ringer's 1,000 mls @ 100 mls/hr 02/20/21 10:15 02/20/21 10:00 Lactated Ringers IV 100 mls/hr DIRECT DAVID Administration Ketorolac Tromethamine 15 mg 02/20/21 14:30 Ketorolac 30 Mg/1 Ml Inj IV 02/25/21 14:29 Q6H PRN Pain, Moderate (4-6) Morphine Sulfate 4 mg 02/20/21 14:30 Morphine 4 Mg/1 Ml Inj IV Q4H PRN Pain , Severe (7-10) Ondansetron HCl 4 mg 02/17/21 11:23 02/20/21 10:51 Ondansetron 4 Mg/2 Ml Inj IV 4 mg Q8H PRN Administration Nausea And Vomiting Oxycodone/Acetaminophen 1 tab 02/20/21 14:30 02/21/21 12:20 Oxycodone /Acetaminophen 5-325mg Tab PO 1 tab Q6H PRN Administration Pain, Moderate (4-6) Sodium Chloride 10 ml 02/17/21 22:00 02/20/21 09:06 Sodium Chloride 0.9% 10 Ml Flush Syringe IV 10 ml BID DAVID Administration Sodium Chloride 10 ml 02/17/21 11:23 Sodium Chloride 0.9% 10 Ml Flush Syringe IV PRN PRN LINE FLUSH Sodium Chloride 10 ml 02/20/21 14:30 Sodium Chloride 0.9% 10 Ml Flush Syringe IV 02/21/21 23:59 PRN NR
[2021-02-21] MEDS: POTASSIUM CHLORIDE ER 20 MEQ TAB PO SCH (20:49)
--- NOTE | 2021-02-22 08:54 | Progress Note ---
Assessment and Plan Assessment and Plan Assessment and plan: --Displaced left tibia and fibula fracture Current Visit: Yes Status: Acute Evaluated by orthopedic surgeon underwent s/p Closed reduction insertion of intramedullary nail left] tibia Postop care, pain medications, physical therapy and supportive care --Hypertension Current Visit: Yes Status: Chronic Continue antihypertensives --CHF (congestive heart failure) Current Visit: Yes Status: Chronic Continue current antifailure medications --Acute kidney injury; Current Visit: Yes Status: Acute vasomotor nephropathy Gentle hydration, monitor renal function, avoid nephrotoxin --DVT prophylaxis Current Visit: Yes Status: Acute DVT prophylaxis per orthopedic Subjective Date of service: 02/22/21 Principal diagnosis: L Tib-Fib Fx Interval history: 70-year-old female patient with history of fall 2 weeks ago with displaced left tibia-fibula fracture was admitted directly,Evaluated by orthopedic surgeon Underwent closed reduction insertion of intramedullary nail left tibia. Receiving postop care, physical therapy, occupational therapy and supportive care. Has history of congestive heart failure on antifailure medications Disposition: Per orthopedic team 02/21/2021; Patient is tolerating physical therapy, very minimal pain at the surgical site Possible discharge tomorrow if cleared by orthopedic and stable Objective - Constitutional Vitals: Vital Signs - 12hr 02/21/21 02/21/21 02/21/21 21:07 22:20 23:34 Temperature 98.3 F Pulse Rate 70 71 Respiratory 18 Rate Blood Pressure 144/70 135/58 O2 Sat by Pulse 98 92 Oximetry 02/22/21 02/22/21 04:55 07:11 Temperature 97.9 F 98.6 F Pulse Rate 69 71 Respiratory 16 18 Rate Blood Pressure 124/79 133/69 O2 Sat by Pulse 95 99 Oximetry - Labs CBC & Chem 7: 02/21/21 08:05 02/21/21 08:05
[2021-02-22] MEDS: oxyCODONE /ACETAMINOPHEN 5-325MG TAB PO PRN ×3 (09:26→23:14)
[2021-02-22] MEDS: AMIODARONE 200 MG TAB PO SCH (09:26)
[2021-02-22] MEDS: hydrALAZINE 10 MG TAB PO SCH ×3 (09:26→21:28)
[2021-02-22] MEDS: carvediloL 12.5 MG TAB PO SCH ×2 (09:26→22:28)
[2021-02-22] MEDS: FUROSEMIDE 40 MG TAB PO SCH (09:27)
[2021-02-22] MEDS: CALCITRIOL 0.25 MCG CAP PO SCH (09:27)
[2021-02-22] MEDS ORDERED: POLYETHYLENE GLYCOL 3350 17 GM POWDER PO ONE ×2 (15:10→19:00)
[2021-02-22] MEDS ORDERED: SODIUM CHLORIDE 0.9% 1000 ML 1,000 ML IV SCH ×2 (18:15→18:30)
[2021-02-23] MEDS: FUROSEMIDE 40 MG TAB PO SCH ×2 (09:11→09:14)
[2021-02-23] MEDS: CALCITRIOL 0.25 MCG CAP PO SCH (09:11)
[2021-02-23] MEDS: hydrALAZINE 10 MG TAB PO SCH (09:12)
[2021-02-23] MEDS: AMIODARONE 200 MG TAB PO SCH (09:12)
[2021-02-23] MEDS: carvediloL 12.5 MG TAB PO SCH (09:12)
[2021-02-23 09:52] LABS: Calcium 9.6 mg/dL (8.4-10.2)
--- NOTE | 2021-02-23 10:52 | Discharge Summary ---
Providers - Providers Date of Admission: 02/19/21 18:36 Date of discharge: 02/23/21 Attending physician: SHANNON SALAS MD 02/19/21 14:47 Consult to Physician [CONS] Stat Comment: Consulting Provider: ALONZO ARAIZA Physician Instructions: Reason For Exam: pre op cardiac clearance 02/19/21 14:50 Consult to Physician [CONS] Urgent Comment: Consulting Provider: KAREN BONDS Physician Instructions: Reason For Exam: MEDICAL MANANGEMENT 02/20/21 14:01 Physical Therapy Evaluation and Treat [CONS] Routine Comment: Reason For Exam: Gait training postop evaluation Weight bearing status?: Full wt bearing Assistive devices?: Yes If so list: Walker Primary care physician: STAFFING DIRECTOR Hospitalization Hospital course: 70-year-old female patient with history of fall 2 weeks ago with displaced left tibia-fibula fracture was admitted directly,Evaluated by orthopedic surgeon Underwent closed reduction insertion of intramedullary nail left tibia. Receiving postop care, physical therapy, occupational therapy and supportive care. Has history of congestive heart failure on antifailure medications Orthopedic had said patient can be discharged. Will discharge home. Patient has been tolerating physical therapy. We will go home with physical therapy. Disposition: HOME / SELF CARE / HOMELESS Final Discharge Diagnosis (Prints w/discharge instructions): Hip fracture ground-level fall - Discharge Diagnoses (1) Fracture of left tibia and fibula Status: Acute Comment: Fracture left tibia fibula. Corrected with closed reduction. Placed intramedullary fixation device. Stable with physical therapy. Stable to go home with physical therapy. (2) Chronic HFrEF (heart failure with reduced ejection fraction) Status: Chronic Comment: Well compensated throughout hospital stay. (3) Hypertension Status: Chronic Qualifiers: Hypertension type: primary hypertension Qualified Code(s): I10 - Essential (primary) hypertension Comment: Maintained optimal control throughout hospital stay. Core Measure Documentation - Palliative Care Palliative Care/ Comfort Measures: Not Applicable - Core Measures Any of the following diagnoses?: none Exam - Constitutional Vitals: Temp Pulse Resp BP Pulse Ox 98.8 F 69 16 133/60 96 02/23/21 07:11 02/23/21 09:12 02/23/21 07:11 02/23/21 09:12 02/23/21 07:11 General appearance: Present: no acute distress, well-nourished - EENT Eyes: Present: PERRL ENT: hearing intact, clear oral mucosa - Neck Neck: Present: supple, normal ROM - Respiratory Respiratory effort: normal Respiratory: bilateral: CTA - Cardiovascular Heart Sounds: Present: S1 & S2. Absent: rub, click - Extremities Extremities: pulses symmetrical, No edema Peripheral Pulses: within normal limits - Abdominal General gastrointestinal: Present: soft, non-tender, non-distended, normal bowel sounds Female genitourinary: Present: normal - Integumentary Integumentary: Present: clear, warm, dry - Musculoskeletal Musculoskeletal: gait normal, strength equal bilaterally - Psychiatric Psychiatric: appropriate mood/affect, intact judgment & insight - Neurologic Neurologic: CNII-XII intact, moves all extremities Plan Activity: up only with assistance Weight Bearing Status: Weight Bear as Tolerated Diet: low cholesterol, low salt Special Instructions: physical therapy, home health RN Durable Medical Equipment Needed Upon Discharge: Walker-Rolling Follow up with: PRIMARY CARE,MD [Primary Care Provider] - 7 Days Prescriptions: hydrALAZINE [Apresoline TAB] 10 mg PO TID #60 carvediloL [Coreg] 12.5 mg PO BID #60 tablet Oxycodone HCl/Acetaminophen [Percocet 10/325 mg] 1 each PO Q6HR PRN #30 tablet PRN Reason: Pain oxyCODONE /ACETAMINOPHEN [Percocet 5/325 mg] 1 tab PO Q6H PRN #30 tablet PRN Reason: Pain, Moderate (4-6)
[2021-02-23] MEDS: oxyCODONE /ACETAMINOPHEN 5-325MG TAB PO PRN (11:20)
[2021-02-23 14:14] VITALS: BP 123/50
== END 2021-02-23 16:25 | disposition home or self-care (01) | DRG 492 ==
LOC: UNDOADMIN 12:46 → 3A 12:46 → 3B-SURG 02-19 18:36
PROVIDERS: ADMIT Orthopaedic Surgery; ATTEND Orthopaedic Surgery
PROC: 0QSH36Z Reposition Left Tibia with Intramedullary Internal Fixation Device, Percutaneous Approach (ICD-10-PCS; principal; 2021-02-20)
DX: S82.202A Unspecified fracture of shaft of left tibia, initial encounter for closed fracture (principal); N17.0 Acute kidney failure with tubular necrosis; I50.42 Chronic combined systolic (congestive) and diastolic (congestive) heart failure; I42.8 Other cardiomyopathies; I13.0 Hypertensive heart and chronic kidney disease with heart failure and stage 1 through stage 4 chronic kidney disease, or unspecified chronic kidney disease; J44.9 Chronic obstructive pulmonary disease, unspecified; S82.832A Other fracture of upper and lower end of left fibula, initial encounter for closed fracture; I34.0 Nonrheumatic mitral (valve) insufficiency; N18.30 Chronic kidney disease, stage 3 unspecified; W18.39XA Other fall on same level, initial encounter; Z82.49 Family history of ischemic heart disease and other diseases of the circulatory system; Z88.1 Allergy status to other antibiotic agents; Z88.0 Allergy status to penicillin; Z88.8 Allergy status to other drugs, medicaments and biological substances; Z87.891 Personal history of nicotine dependence; Z95.810 Presence of automatic (implantable) cardiac defibrillator; Y93.89 Activity, other specified; Y92.89 Other specified places as the place of occurrence of the external cause; Y99.8 Other external cause status
CPT/HCPCS: 36415; 64450; 80048; 85014; 85018; 85025; 85610; 85730; 93306; G0378; C1713; J1100; J2250; J2370; J2405; J3010; J3370; J3490; J7030; J7120